=== PATIENT | female | born 1980 | race African-American/Black ===

== ENCOUNTER 2020-09-07 18:22 | Emergency (ER) | payer OTHER, SELFPAY ==
[2020-09-07 18:51] VITALS: BP 134/91; PULSE 79; RESP 16; TEMP 36.4; O2SAT 99; BMI 41.3
--- NOTE | 2020-09-07 18:53 | ED.GENADULT ---
HPI - General Adult General Chief complaint: General Medical Stated complaint: cough Related Data Allergies Allergy/AdvReac Type Severity Reaction Status Date / Time No Known Allergies Allergy Unverified 06/11/20 17:23 [No Known Allergies*] Review of Systems Review of Systems: Constitutional: No Fever, no Chills, no fatigue, no Malaise ENT/Mouth: No sore throat, no runny nose Eyes: No Discharge Cardiovascular: No Chest Pain, No SOB Respiratory: Positive Cough, No Sputum, No Wheezing, No Smoke Exposure, No Dyspnea Gastrointestinal: No Nausea, No Vomiting, No Diarrhea Genitourinary: no irregular bleeding, No Dysuria, No Urinary Frequency, No Hematuria, No Urinary Incontinence, No Urgency, No Flank Pain, Musculoskeletal: No Myalgia Skin: No rash Neuro: No Headache Yes all other systems are reviewed and are negative FOR[facility]LY [facility] Past Medical History Attestation statement: The following information was validated with the patient. Social History Social History Advance Directives: No Advance Directives Information Provided: No Physical Exam Vital Signs: Vital Signs: Last Vital Signs Temp 97.6 F 09/07/20 18:51 Pulse 79 09/07/20 18:51 Resp 16 09/07/20 18:51 BP 134/91 H 09/07/20 18:51 Pulse Ox 99 09/07/20 18:51 Body Mass Index 41.3 Appearance: Alert. Oriented X3. No acute distress. Eyes: Pupils equal, round and reactive to light. ENT: Pharynx normal. Neck: Normal inspection. Neck supple. CVS: Normal heart rate and rhythm. Pulses normal. Respiratory: No respiratory distress. Breath sounds normal. Abdomen: Soft and nontender. Skin: Skin warm and dry. Normal skin color. Normal skin turgor. Extremities: No lower extremity edema. Neuro: No motor deficit. No sensory deficit. Course Course Course Narrative: 39-year-old with upper respiratory symptoms and cough presents for COVID-19 testing. Plan of care is to test and discharge home. Patient verbalized understanding of social isolation procedure for COVID-19. Medical Decision Making Differential Diagnosis Differential Diagnosis: URI, acute viral syndrome, COVID-19 Lab Data Lab results reviewed: Yes I reviewed the patient's lab results. Discharge Plan Discharge Clinical Impression: Viral infection, COVID-19 Upper respiratory infection Qualifiers: URI type: unspecified URI Qualified Code(s): J06.9 - Acute upper respiratory infection, unspecified Patient Disposition: Home, Self-Care Instructions: Upper Respiratory Infection (ED), Viral Syndrome (ED), COVID-19 (Coronavirus Disease 2019) (ED) Additional Instructions: You were evaluated for symptoms consistent with COVID-19. Your COVID-19 test is pending. Please maintain social isolation guidelines for state and Federal regulations. It is your responsibility to maintain these guidelines. Please drink plenty of fluids, alternate Tylenol and Motrin. Thank you for choosing this emergency department for evaluation. Please follow-up with primary care physician as needed. Return to the emergency department for any new, concerning, or worsening symptoms. Interventions: ED Discharge Assessment Last Done: 09/07/20 19:23 Discharge Date/Time: 09/07/20 19:24
== END 2020-09-07 19:24 | disposition home or self-care (01) ==
PROVIDERS: Nurse Practitioner Family; Emergency Provider Internal Medicine
DX: B34.9 Viral infection, unspecified (principal); Z20.828 Contact with and (suspected) exposure to other viral communicable diseases; R05 Cough
CPT/HCPCS: 99283; U0003

== ENCOUNTER 2021-07-02 13:06 | Emergency (ER) | payer OTHER, SELFPAY ==
--- NOTE | ~2021-07-02 | XR_ITS ---
EXAMINATION: XR CHEST CLINICAL INFORMATION: Shortness of breath COMPARISON: Previous chest x-ray May 2019 TECHNIQUE: Frontal view of the chest was obtained. FINDINGS: No significant abnormality is noted involving the heart, lungs, mediastinum, bony thorax or soft tissues. XR/XR chest 1V IMPRESSION: Unremarkable examination.
[2021-07-02 14:09] VITALS: BP 133/64; PULSE 84; RESP 18; TEMP 36.2; O2SAT 99; BMI 44.3
--- NOTE | 2021-07-02 14:19 | ED_ITS ---
HPI - URI/Sore Throat General Chief Complaint: Upper Respiratory Symptoms Stated Complaint: Flu like Time Seen by Provider: 07/02/21 14:19 Source: patient Mode of arrival: ambulatory Limitations: no limitations History of Present Illness HPI Narrative: 40 yo female pmhx of asthma presents to the ED with 4 days of cough, sore throat, loss of taste and smell and congestion. She states her cough is productive of white sputum. She states she feels very stuffy. She has no known sick contacts. She has her COVID vaccine. She is a smoker 1 pack per week. Her asthma is well controlled and she has never required intubation. She denies fevers, chills, SOB, CP, abdominal pain, nausea, vomiting. Able to keep food down and drink as usual. MD elicited complaint: fever, cough, sore throat, rhinorrhea and nasal congestion Pertinent past history: asthma Onset (ago): day(s) (4) Consistency: constant Severity: moderate Description of mucous: yellow Able to tolerate fluids by mouth: Yes Exacerbating factors: nothing Relieving factors: nothing Context: recent dental work (1 week ago ) Associated symptoms: rhinorrhea, sore throat and cough Treatments prior to arrival: none Related Data Allergies Allergy/AdvReac Type Severity Reaction Status Date / Time No Known Allergies Allergy Verified 07/02/21 14:11 [No Known Allergies*] Review of Systems Review of Systems: + loss of taste and smell Yes all other systems are reviewed and are negative Constitutional: Constitutional: Reports no additional constitutional complaints, Denies body ache(s), Denies chills, Denies fever(s), Denies headache(s), Reports malaise and Denies weakness Eyes: Eyes: Reports no additional eye complaints and Denies change in vision ENT: Reports system reviewed and no additional complaints, except as documented, Denies dizziness, Denies headache(s), Reports nasal congestion, Reports nasal discharge, Denies neck pain and Reports sore throat Cardiovascular: Cardiovascular: Reports no additional cardiovascular complaints, Denies chest pain, Denies leg edema and Denies dyspnea Respiratory: Respiratory: Reports no additional respiratory complaints, Denies cough and Denies dyspnea Gastrointestinal: Gastrointestinal: Reports no additional gastrointestinal complaints, Denies abdominal pain, Denies diarrhea, Denies nausea and Denies vomiting Genitourinary: Genitourinary: Reports no additional female genitourinary complaints and Denies urinary incontinence Musculoskeletal: Musculoskeletal: Reports no additional musculoskeletal complaints, Denies back pain, Denies arthralgias, Denies joint swelling, Denies neck pain, Denies numbness and Denies tingling Integumentary/Breasts: Skin/Breast: Reports system reviewed and no additional complaints, except as docu and Denies rash Neurologic: Reports system reviewed and no additional complaints, except as documented, Denies Abnormal speech present, Denies dizziness, Denies headache(s), Denies numbness, Denies tingling and Denies weakness PMF Past Medical History Attestation statement: The following information was validated with the patient. Source: old records reviewed and nursing notes reviewed Medical History No known health problems Social History Social History Advance Directives: No Patient : No Physical Exam Vital Signs: Vital Signs: Last Vital Signs Temp 97.1 F 07/02/21 14:09 Pulse 84 07/02/21 14:09 Resp 18 07/02/21 15:25 BP 133/64 07/02/21 14:09 Pulse Ox 99 07/02/21 14:09 Body Mass Index 44.3 Const: General: cooperative, healthy appearing, comfortable and no acute distress Orientation/consciousness: patient oriented x3 Limitations: no limitations HENMT: Other: + Enlarged tonsils bilaterally slight errythema noted. Clear/yellow colored nasal discharge discharge. Head: Yes normal to inspection Ears: hearing grossly normal bilaterally General nose exam: Normal external nose present Face and sinus: Yes normal facial exam Mouth: abnormal oral mucosae, oropharynx abnormals (b/l tonsil enlargement and errythema ), moist mucous membranes, no drooling and no trismus Throat: Yes posterior oropharynx normal Eyes: General: appearance normal, both eyes and all related structures Pupils: Equal, round and reactive pupils present Neck: Neck: Yes normal visual inspection Chest: Chest palpation & inspection: normal inspection of the chest Resp: Effort & Inspection: normal respiratory effort Auscultation: clear to auscultation bilaterally Cardio: Rate: regular rate Rhythm: regular rhythm Peripheral pulses: Peripheral pulses 2+ throughout GI: Inspection: Yes normal to inspection Palpation (GI): Soft to palpation and nontender Auscultation: normal bowel sounds Back/Spine/Pelvis: Thoracic/Lumbar Spine: thoracic and lumbar spine normal to inspection Skin: General skin exam: no rashes or lesions noted Neuro: General: patient oriented x3, no focal motor deficits and normal sensa tion to monofilament Cranial nerves: Yes Equal, round and reactive pupils present Cognition (Neuro): normal cognition Speech: No Abnormal speech present Gait exam (Neuro): Normal gait present Motor exam (neuro): 5/5 motor strength present throughout Extrem: General: Yes normal to inspection Course Course Course Narrative: [age] YO female pmhx of asthma presents to the ED with 4 days of productive cough (yellow/clear sputum), anosmia, ageusia and nassal congestion. She is a smoker 1 pack per week. Fully vaccinated. Physical examination is significant for bilateral tonsil enlargement, and erythema overlying them. There is also decreased breath sounds to bilateral lower lobes. Clear/yellow rhinorrhea noted. Reevaluation(s) Reevaluation #1: Strep negative. Flu/COVID/RSV negative. This is likely a viral upper respiratory infection. She has been advised to return to the emergency department with warning signs such as fevers, chills, shortness of breath or chest pain. Or if she develops new symptoms. At this time her vitals are stable she is 99% on RA with normal respiration and afebrile. She is safe for discharge home with PCP follow up. She should take Tylenol/Motrin for fevers as needed. MDM - URI/Sore Throat MDM Narrative Medical decision making narrative: Unlikely that this is strep throat, however strep swab will be ordered. Based off patient history, and physical exam findings, this is likely COVID-19. COVID swab will be ordered to confirm. Will rule out pneumonia with CXR due to patients productive cough. No likely PE patient denies pleuritic CP, no tachycardia or tachypnea. She will be given 2 puffs of albuterol now. Medical Records Attestation: I reviewed the patient's medical records. Lab Data Attestation: I reviewed the patient's lab results. Labs: Lab Results 07/02/21 07/02/21 Range/Units 14:28 14:29 Coronavirus (PCR) NEGATIVE (Negative) Influenza Type A (PCR) NEGATIVE (Negative) Influenza Type B (PCR) NEGATIVE (Negative) RSV RNA Qual (PCR) NEGATIVE (Negative) S. pyogenes GrpA MADELYN Negative (Negative) Discharge Plan Discharge Clinical Impression: Upper respiratory infection Patient Disposition: Home, Self-Care Instructions: Upper Respiratory Infection (ED) Additional Instructions: Drink plenty of fluids Today you tested negative for strep and negative for Flu/COVID/RSV Take tylenol or motrin as needed for fevers Follow up with your PCP in a week Return to the emergency department with new or worsening symptoms. Stand Alone Forms: Work/School Release Interventions: ED Discharge Assessment Last Done: 07/02/21 16:32 Discharge Date/Time: 07/02/21 16:33
[2021-07-02] MEDS: Acetaminophen 325 MG TABLET 650 MG PO (14:40)
[2021-07-02 14:42] LABS: Strep A Nucleic Acid Negative (Negative)
[2021-07-02] MEDS: Albuterol Sulfate 90 MCG 8 GM INHALER 2 PUFF INHALE (14:55)
[2021-07-02 15:25] VITALS: RESP 18
[2021-07-02 15:27] LABS: Influenza A PCR NEGATIVE (Negative); Influenza B PCR NEGATIVE (Negative); Resp Syncy Virus RNA Qual PCR NEGATIVE (Negative); SARS COV2 PCR INHOUSE NEGATIVE (Negative)
== END 2021-07-02 16:33 | disposition home or self-care (01) ==
PROVIDERS: Nurse Practitioner Family; Emergency Provider Emergency Medicine Emergency Medical Services
DX: J06.9 Acute upper respiratory infection, unspecified (principal); J45.909 Unspecified asthma, uncomplicated; F17.200 Nicotine dependence, unspecified, uncomplicated; Z20.822 Contact with and (suspected) exposure to COVID-19
CPT/HCPCS: 0241U; 36415; 71045; 87651; 94640; 99283; 99284

== ENCOUNTER 2021-08-13 08:28 | Outpatient (REF) | payer OTHER, SELFPAY ==
[2021-08-13 11:34] LABS: Hematocrit 35.8 % (37.0-47.0); Hemoglobin 10.9 g/dl (12.0-16.0); Mean Corpuscular Hemoglobin 18.6 pg (27.0-33.0); Red Blood Count 5.87 X10*6/uL (4.20-5.50); White Blood Count 9.3 X10*3/uL (4.8-10.8)
[2021-08-13 11:35] LABS: Mean Corpuscular HGB Conc 30.4 g/dl (31.0-35.0); Mean Platelet Volume 10.6 fL (9.4-12.3); Platelet Count 436 X10*3/uL (160-400); Red Cell Distribution Width 18.9 % (11.0-16.0)
[2021-08-13 11:37] LABS: Appearance Urine HAZY; Color Urine YELLOW; Glucose Urine UA NEG (NEG); Leukocyte Esterase Urine NEG (NEG); Nitrite Urine NEG (NEG); Specific Gravity - Urine 1.025 (1.005-1.025); Urine Blood NEG (NEG); Urine Ketones NEG (NEG); Urine Protein NEG (NEG-TRACE)
[2021-08-13 11:54] LABS: Squamous Epithelial Cell Urine 2+ /LPF
[2021-08-13 11:55] LABS: Bacteria Urine 1+ /LPF; RBC Urine 0 /HPF (0); WBC Urine 0 /HPF (0-4)
[2021-08-13 12:00] LABS: Alanine Aminotransferase 16 U/L (0-31); Alkaline Phosphatase 83 U/L (39-117); Anion Gap 14 (12-20); Aspartate Amino Transferase 18 U/L (5-31); Bilirubin Total 1.1 mg/dL (0.0-1.0); Blood Urea Nitrogen 8 mg/dL (9-16); Calcium 9.3 mg/dL (8.4-10.2); Carbon Dioxide 24 mmol/L (22-29); Chloride 105 mmol/L (96-108); Cholesterol 141 mg/dL; Estimated Glomerular Filt Rate > 60; Glucose Fasting 80 mg/dL (60-99); HDL Cholesterol 31 mg/dL; LDL Cholesterol Calculated 89 mg/dl; Potassium 4.6 mmol/L (3.3-5.1); Sodium 138 mmol/L (135-145); Total Protein 7.3 g/dL (6.5-8.0); Triglycerides 105 mg/dL
[2021-08-13 12:22] LABS: TSH reflex Free T4 1.81 uIU/mL (0.32-4.0)
== END 2021-08-13 08:29 | disposition home or self-care (01) ==
LOC: HO.HMGCLDS 08:28
PROVIDERS: PCP Internal Medicine; Visit Provider Internal Medicine
DX: Z00.00 Encounter for general adult medical examination without abnormal findings (principal)
CPT/HCPCS: 36415; 80053; 80061; 81001; 84443; 85027

== ENCOUNTER → 2021-08-27 11:22 | Outpatient (BNVA) | payer OTHER, SELFPAY | PROVIDERS: PCP Internal Medicine; Visit Provider Advanced Practice Midwife ==

== ENCOUNTER → 2021-09-30 10:32 | Outpatient (BNVA) | payer OTHER, SELFPAY | PROVIDERS: PCP Internal Medicine; Visit Provider Advanced Practice Midwife | DX: Z30.46 Encounter for surveillance of implantable subdermal contraceptive (principal); R68.89 Other general symptoms and signs; E66.01 Morbid (severe) obesity due to excess calories; F17.200 Nicotine dependence, unspecified, uncomplicated; Z68.41 Body mass index [BMI] 40.0-44.9, adult | CPT/HCPCS: 11982 ==

== ENCOUNTER 2022-01-05 08:30 | Outpatient (REF) | payer OTHER, SELFPAY ==
[2022-01-05 17:30] LABS: CT PCR NOT DETECTED (Not Detect.); NG PCR NOT DETECTED (Not Detect.)
[2022-01-06 09:43] LABS: BV Int Neg Control Negative (Negative); BV Int Pos Control Positive (Positive)
== END 2022-01-05 08:31 | disposition home or self-care (01) ==
LOC: HO.LAB 08:30
PROVIDERS: PCP Internal Medicine; Visit Provider Advanced Practice Midwife
DX: Z01.419 Encounter for gynecological examination (general) (routine) without abnormal findings (principal); N89.8 Other specified noninflammatory disorders of vagina; L28.0 Lichen simplex chronicus; E66.01 Morbid (severe) obesity due to excess calories; F17.210 Nicotine dependence, cigarettes, uncomplicated; Z11.3 Encounter for screening for infections with a predominantly sexual mode of transmission; Z11.8 Encounter for screening for other infectious and parasitic diseases; Z68.42 Body mass index [BMI] 45.0-49.9, adult
CPT/HCPCS: 87480; 87491; 87510; 87591; 87660

== ENCOUNTER 2022-01-31 15:48 | Outpatient (REF) | payer OTHER, SELFPAY ==
--- NOTE | ~2022-01-31 | MM_ITS ---
EXAMINATION: MM SCREENING DIGITAL BREAST TOMOSYNTHESIS, BILATERAL CLINICAL INFORMATION: Screening. Asymptomatic. Age 41. No prior breast imaging. Family history breast cancer, mother. The lifetime risk of breast cancer based on the Tyrer-Cuzick Model is 17%. COMPARISON: None (current study represents initial baseline exam). TECHNIQUE: Digital breast tomosynthesis is performed in both the craniocaudal and mediolateral oblique views along with computer-aided detection (CAD). Synthesized 2D images are generated from the tomosynthesis. FINDINGS: There are scattered areas of fibroglandular density (ACR BI-RADS breast composition Category b). Parenchymal pattern borders on predominantly fatty. There is no significant mass or architectural abnormality. There are no abnormal calcifications. Two incidental low right axillary tail nodes are present on right MLO view. The bilateral axilla and skin contours are unremarkable. MM/MM tomosynthesis screening BI IMPRESSION: No mammographic evidence of malignancy. ASSESSMENT: BI-RADS 2: Benign RECOMMENDATION: Routine annual mammography screening. This patient's information was entered into a reminder system with a target due date for their next mammogram.
== END 2022-01-31 15:49 | disposition home or self-care (01) ==
LOC: HO.MAMMO 15:48
PROVIDERS: Visit Provider Advanced Practice Midwife
DX: Z12.31 Encounter for screening mammogram for malignant neoplasm of breast (principal)
CPT/HCPCS: 77063; 77067

== ENCOUNTER → 2022-03-07 14:47 | Outpatient (BNVA) | payer OTHER, SELFPAY | PROVIDERS: Visit Provider Advanced Practice Midwife | DX: Z31.69 Encounter for other general counseling and advice on procreation (principal); Z32.02 Encounter for pregnancy test, result negative | CPT/HCPCS: 81025; 99212 ==

== ENCOUNTER 2022-04-22 10:53 | Outpatient (REF) | payer OTHER, SELFPAY ==
--- NOTE | ~2022-04-22 | XR_ITS ---
EXAMINATION: XR CHEST CLINICAL INFORMATION: Encounter for general adult medical examination COMPARISON: None TECHNIQUE: 2 views of the chest were obtained. FINDINGS: The lungs are well expanded. There is no focal consolidation, edema, or effusion. No pneumothorax. The cardiomediastinal silhouette is within normal limits. No acute osseous abnormality. XR/XR chest 2V IMPRESSION: No acute pulmonary finding.
== END 2022-04-22 10:54 | disposition home or self-care (01) ==
LOC: HO.HMGCX 10:53
PROVIDERS: Visit Provider Internal Medicine
DX: Z00.00 Encounter for general adult medical examination without abnormal findings (principal)
CPT/HCPCS: 71046

== ENCOUNTER 2022-09-27 15:16 | Outpatient (REF) | payer OTHER, SELFPAY ==
[2022-09-27 16:58] LABS: Appearance Urine Cloudy; Color Urine Yellow; Glucose Urine UA Negative (Negative); Leukocyte Esterase Urine Moderate (2+) (Negative); Nitrite Urine Negative (Negative); Specific Gravity - Urine 1.025 (1.005-1.025); UMIC TRIGGER UACC YES; Urine Blood Moderate (2+) (Negative); Urine Ketones Negative (Negative); Urine Protein 30 (1+) mg/dL (Neg-Trace)
[2022-09-27 17:04] LABS: Bacteria Urine None Seen (None Seen); Hyaline Casts Urine 0-2 /LPF (0-2); Squamous Epithelial Cell Urine 0-2 /HPF (0-2); UACC Culture Trigger YES; WBC Urine >50 /HPF (0-5)
== END 2022-09-27 15:17 | disposition home or self-care (01) ==
LOC: HO.HMGCLDS 15:16
PROVIDERS: Visit Provider Internal Medicine
DX: N39.0 Urinary tract infection, site not specified (principal)
CPT/HCPCS: 81001; 81003; 87086

== ENCOUNTER 2022-10-04 15:05 | Outpatient (REF) | payer OTHER, SELFPAY ==
[2022-10-04 17:11] LABS: Appearance Urine Clear; Color Urine Yellow; Glucose Urine UA Negative (Negative); Leukocyte Esterase Urine Negative (Negative); Nitrite Urine Negative (Negative); PH 6.5 (5.0-9.0); Urine Blood Negative (Negative); Urine Ketones Negative (Negative); Urine Protein Negative (Neg-Trace)
== END 2022-10-04 15:06 | disposition home or self-care (01) ==
LOC: HO.HMGCLDS 15:05
PROVIDERS: PCP Internal Medicine; Visit Provider Internal Medicine
DX: R30.0 Dysuria (principal); N39.0 Urinary tract infection, site not specified
CPT/HCPCS: 81003; 87086; 87088; 87186

== ENCOUNTER 2023-01-23 13:24 | Outpatient (REF) | payer OTHER, SELFPAY ==
[2023-01-23 15:08] LABS: Appearance Urine Clear; Color Urine Yellow; Glucose Urine UA Negative (Negative); Leukocyte Esterase Urine Trace (Negative); Nitrite Urine Negative (Negative); PH 6.5 (5.0-9.0); Specific Gravity - Urine <= 1.005 (1.005-1.025); UMIC TRIGGER UACC YES; Urine Blood Negative (Negative); Urine Ketones Negative (Negative); Urine Protein Negative (Neg-Trace)
[2023-01-23 15:30] LABS: Bacteria Urine None Seen (None Seen); Hyaline Casts Urine 0-2 /LPF (0-2); RBC Urine 0-2 /HPF (0-2); Squamous Epithelial Cell Urine 0-2 /HPF (0-2); WBC Urine 0-5 /HPF (0-5)
[2023-01-23 15:51] LABS: HCG Quantitative < 2 mIU/mL
== END 2023-01-23 13:25 | disposition home or self-care (01) ==
LOC: HO.LAB 13:24
PROVIDERS: PCP Internal Medicine; Visit Provider Advanced Practice Midwife
DX: N92.6 Irregular menstruation, unspecified (principal); R39.15 Urgency of urination; R35.0 Frequency of micturition
CPT/HCPCS: 36415; 81001; 81003; 81025; 84702; 99212

== ENCOUNTER 2023-08-31 13:23 | Outpatient (AMB) | payer OTHER, SELFPAY ==
--- NOTE | 2023-08-31 13:24 | A.OFFVIS_ITS ---
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 Doing well with no concerns. She tries to eat healthy, no regular exercise. Regular monthly menses. Currently is sexually active. Declines control. She wants to have a future . She denies vaginal itching and irritation. Denies family history of ovarian or colon cancer. 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: House Patient Tobacco Use Status: Current everyday Tobacco user Cigarette Packs Per Day: 0 Cigarettes Per Day: 3 service: No Current occupational status: employed Female Reproductive History Menstrual Duration of menses: 3-5 days Date of last menstrual period: 08/04/23 Total pregnancies: 3 Full term: 3 Number of Living Children: 3 Date of last pap smear: 07/12/19 (neg pap and hpv) Date of Mammogram: 01/31/22 (Birad 2) Review of Systems Const All systems reviewed & are unremarkable except as noted in HPI and below Reports as per HPI Eyes Reports no additional complaints ENT Reports no additional complaints Card Reports no additional complaints Resp Reports no additional complaints GI Reports as per HPI and Reports no additional complaints Reports as per HPI Musc Reports no additional complaints Skin/Breast Reports as per HPI Neuro Reports no additional complaints Psych Reports no additional complaints Endo Reports no additional complaints Ismael/Lymph Reports no additional complaints Aller/Immun Reports no additional complaints Physical Exam Vital Signs: Last Vital Signs BP 124/80 08/31/23 13:29 BMI result Body Mass Index 47.3 Const General: cooperative, healthy appearing, no acute distress, well developed and alert Orientation/consciousness: patient oriented x3 HEENT Head: Yes normal to inspection Eyes General: appearance normal, both eyes and all related structures Neck Neck: Yes normal visual inspection Thyroid: Thyroid normal Chest Chest palpation & inspection: normal inspection of the chest and other (no puckering, dimpling, peau de orange, retraction, discharge, masses) Breast/axilla inspection: normal inspection of the breasts Breast/axilla palpation: normal palpation of the breasts Resp Effort & Inspection: normal respiratory effort GI Inspection: Yes normal to inspection Palpation (GI): Soft to palpation Rectal Exam - Female: deferred General: Yes bladder normal to palpation External Female Exam: normal external appearance and normal appearance of the urethra Speculum Exam - Vagina: normal appearance of the vagina, normal palpation and normal vaginal discharge Speculum Exam - Cervix: normal appearance of the cervix and normal palpation Bimanual exam- vagina & uterus: normal bimanual exam, normal palpation, uterine size normal, bladder normal to palpation, normal palpation and non-tender Bimanual Exam- Adnexa, other: no masses Skin General skin exam: no rashes or lesions noted Rashes: no rashes Neuro General: patient oriented x3 Cognition (Neuro): normal cognition Extrem General: Yes normal to inspection Psych Attitude: cooperative Thought process: Normal thought process present Assessment & Plan Assessment & Plan (1) Encounter for well woman exam with routine gynecological exam: Code(s): Z01.419 - Encounter for gynecological examination (general) (routine) without abnormal findings Plan Discussed: Current recommendations for pap smears per ASCCP guidelines. Breast awareness and periodic breast exams. Maintain a healthy lifestyle including a well balanced diet and routine exercise. Advised to restart could do to continue with vitamins and planning. If she is late for menses do a home test and call the [facility] for follow-up appointment. Mammogram yearly. Colonoscopy >45, or at risk sooner. All of her questions and concerns were addressed to the best of my ability. 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 Orders: Orders MM tomosynthesis screening BI Today Z12.31 - Encounter for screening mammogram for malignant neoplasm of breast Medications: Refilled PNV,calcium [id number] acid 27 mg iron- 1 mg ( Vitamins Plus Low Iron) 1 tab PO DAILY 90 tabs 4RF Coding Level of Care Code Est Pt Prev Care 40-64y(81424) Diagnoses Encounter for well woman exam with routine gynecological exam Z01.419
[2023-08-31 13:29] VITALS: BP 124/80; BMI 47.3
== END 2023-08-31 14:00 | disposition home or self-care (01) ==
PROVIDERS: PCP Internal Medicine; Visit Provider Advanced Practice Midwife
DX: Z01.419 Encounter for gynecological examination (general) (routine) without abnormal findings (principal)
CPT/HCPCS: 99396

== ENCOUNTER → 2023-08-31 13:23 | Outpatient (BNVA) | payer OTHER, SELFPAY | PROVIDERS: PCP Internal Medicine; Visit Provider Advanced Practice Midwife ==

== ENCOUNTER 2023-09-14 13:04 | Outpatient (AMB) | payer OTHER, SELFPAY ==
--- NOTE | 2023-09-14 13:13 | MHC.PC.OV ---
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 Accompanied by: Self / Same As Patient Allergies No Known Allergies [No Known Allergies*] Allergy (Verified 09/14/23 13:14) Medication List - Last Reconciled 09/14/23 by Crystal Mccarty MD PNV,calcium 22-[id number]-[id number] acid 27 mg iron- 1 mg ( Vitamins Plus Low Iron) 1 tab PO DAILY Tobacco use date assessed: 09/14/23 Dental Screening Dental Screen Date: 09/14/23 Did you have a dental visit in the last 12 months?: Yes Did you have a dental problem in the last 6 months where you did not have access to dental care?: No Was dental information given to patient?: Patient has dentist HPI PHY+ NEEDS PHQ9 HPI Details Pt presents for PE. 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 1. Little interest or pleasure in doing things: several days 2. Feeling down, depressed, or hopeless: several days 3. Trouble falling or staying asleep, or sleeping too much: not at all 4. Feeling tired or having little energy: several days 5. Poor appetite or overeating: several days 6. Feeling bad about yourself - or that you are a failure or have let yourself or your family down: several days 7. Trouble concentrating on things, such as reading the newspaper or watching television: not at all 8. Moving or speaking so slowly that other people could have noticed. Or the opposite - being so fidgety or restless that you have been moving around a lot more than usual: not at all 9. Thoughts that you would be better off or of hurting yourself in some way: not at all Total score: 5 Depression Screening Interpretation: Negative Depression Screening Done: Yes 38509 - PHQ-9 Billing: Yes Source: Developed by Drs. Russ Shepherd, Leonela Ricardo, Juancarlos Ndiaye and colleagues, with an educational thomas from [employer]. Thrive Questionnaire Date Thrive assessed: 09/14/23 I am a: Patient What is your living situation today?: I have a steady place to live Within the past 12 months, did the food you bought not last and you didn't have the money to get more?: Never true Within the past 12 months, did you worry whether your food would run out before you got money to buy more?: Never true Do you have trouble paying for medicines?: No Do you have trouble getting transportation to medical appointments?: No Do you have trouble paying your heating and electricity bill?: No Do you have trouble taking care of your child, family member or friend?: No Do you have trouble with day-to-day activities such as bathing, preparing meals, shopping, managing finances, etc.?: No Are you currently unemployed and looking for a job?: No Are you interested in more education?: No Please select the resources that you would like help with: None Currently or been in a relationship where the following occur: no concerns reported JUANCARLOS-7 AMB Questionnaire JUANCARLOS-7 Date JUANCARLOS - 7 assessed: 09/14/23 Feeling nervous, anxious, or on edge: 1 = Several days Not being able to stop or control worryin = Several days Worrying too much about different things: 0 = Not at all Trouble relaxin = Not at all Being so restless that it is hard to sit still: 1 = Several days Becoming easily annoyed or irritable: 0 = Not at all Feeling afraid as if something awful might happen: 0 = Not at all Total JUANCARLOS-7 score (0-4 normal; 5-9 mild; 10-14 moderate; 15-21 severe): 3 Source: Developed by Drs. Russ Shepherd, Leonela Ricardo, Juancarlos Ndiaye and colleagues, with an educational thomas from [employer]. JUANCARLOS-7 Assessment Billing JUANCARLOS-7 Assessment Tool: JUANCARLOS-7 Assessment 60184 Review of Systems Const All systems reviewed & are unremarkable except as noted in HPI and below Reports no additional complaints Eyes Reports no additional complaints ENT Reports no additional complaints Card Reports no additional complaints Resp Reports no additional complaints GI Reports no additional complaints Reports no additional complaints Physical exam (Primary Care) Vital Signs: Last Vital Signs Pulse 65 09/14/23 13:14 BP 126/76 09/14/23 13:14 Pulse Ox 98 09/14/23 13:14 Oxygen Delivery Method Room Air 09/14/23 13:14 BMI result Body Mass Index 47.3 Tobacco/Smoking Status: Tobacco use Status Tobacco use date assessed 09/14/23 09/14/23 13:14 Patient Tobacco Use Status Current everyday Tobacco 09/14/23 13:14 e-Cigarette/Vaping Use Never Used 09/14/23 13:14 PHQ-9: PHQ-9 Score PHQ-9: Total score 5 09/14/23 13:31 Depression Screening Interpretation: Negative Thrive Assessment: Date of Thrive Assessment Date Thrive assessed 09/14/23 09/14/23 13:31 Currently or been in a relationship where the following occur: no concerns reported Const General: no acute distress HENMT Head: Yes normal to inspection Ears: hearing grossly normal bilaterally Face and sinus: Yes normal facial exam Mouth: Normal oral and palatal mucosa present Throat: Yes posterior oropharynx normal Eyes General: appearance normal, both eyes and all related structures Neck Neck: Yes no lymphadenopathy and Yes supple Resp Effort & Inspection: normal respiratory effort Auscultation: clear to auscultation bilaterally Cardio Rhythm: regular rhythm Heart sounds: S1 normal heart sound present and S2 normal heart sound present GI Inspection: Yes normal to inspection Palpation (GI): Soft to palpation Percussion: Yes normal to percussion Auscultation: normal bowel sounds Results AMB Urinalysis, Automated UA Leukoctes 0 Long/uL Last Edit by Dakota Soni CMA on 09/14/23 13:29 UA Nitrite Negative Last Edit by Dakota Soni CMA on 09/14/23 13:29 UA Urobilinogen 0.2 mg/dL Last Edit by Dakota Soni CMA on 09/14/23 13:29 UA Protein 0 mg/dL Last Edit by Dakota Soni CMA on 09/14/23 13:29 UA pH 7.5 Last Edit by Dakota Soni CMA on 09/14/23 13:29 UA Blood 0 Bernardo/uL Last Edit by Dakota Soni CMA on 09/14/23 13:29 UA Specific [place] 1.010 Last Edit by Dakota Soni CMA on 09/14/23 13:29 UA Ketone Negative Last Edit by Dakota Soni CMA on 09/14/23 13:29 UA Bilirubin 0 mg/dL Last Edit by Dakota Soni CMA on 09/14/23 13:29 UA Glucose 0 mg/dL Last Edit by Dakota Soni CMA on 09/14/23 13:29 Results Reviewed Results Reviewed: Laboratory Last Values Urine pH (Auto) 7.5 09/14/23 13:28 Specific [place] (Auto) 1.010 09/14/23 13:28 Urine Protein (Auto) 0 mg/dL 09/14/23 13:28 Glucose (UA)(Auto) 0 mg/dL 09/14/23 13:28 Urine Ketones (Auto) Negative 09/14/23 13:28 Urine Blood (Auto) 0 Bernardo/uL 09/14/23 13:28 Urine Nitrite (Auto) Negative 09/14/23 13:28 Urine Bilirubin (Auto) 0 mg/dL 09/14/23 13:28 Urine Urobilinogen (Auto) 0.2 mg/dL 09/14/23 13:28 Leukocyte Esterase (Auto) 0 Long/uL 09/14/23 13:28 Assessment and Plan Assessment & Plan (1) Annual physical exam: Code(s): Z00.00 - Encounter for general adult medical examination without abnormal findings Plan: Well-balanced diet, weight loss and regular physical activity discussed with the patient she will return for fasting blood work. 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 she is not interested in weight watchers program (3) UTI (urinary tract infection): Code(s): N39.0 - Urinary tract infection, site not specified Plan: For recurrent dysuria urine culture will be obtained. Orders: Orders Lipid Panel Today E66.01 - Morbid (severe) obesity due to excess calories, Z00.00 - Encounter for general adult medical examination without abnormal findings AMB Urinalysis Automated Today Z13.9 - Encounter for screening, unspecified Complete Blood Count Auto Diff Today E66.01 - Morbid (severe) obesity due to excess calories, Z00.00 - Encounter for general adult medical examination without abnormal findings Comprehensive [place]. Panel Fast Today E66.01 - Morbid (severe) obesity due to excess calories, Z00.00 - Encounter for general adult medical examination without abnormal findings TSH reflex Free T4 Today E66.01 - Morbid (severe) obesity due to excess calories, Z00.00 - Encounter for general adult medical examination without abnormal findings IRON PROFILE Today E66.01 - Morbid (severe) obesity due to excess calories, Z00.00 - Encounter for general adult medical examination without abnormal findings Urine Culture Today N39.0 - Urinary tract infection, site not specified Coding Level of Care Code Est Pt Prev Care 40-64y(35729) Diagnoses Annual physical exam Z00.00 Morbid obesity E66.01 UTI (urinary tract infection) N39.0 Additional Codes JUANCARLOS-7 Assessment Billing - JUANCARLOS-7 Assessment Tool: JUANCARLOS-7 Assessment 55046 ([id number])
[2023-09-14 13:14] VITALS: BP 126/76; PULSE 65; O2SAT 98; BMI 47.3
== END 2023-09-14 13:53 | disposition home or self-care (01) ==
PROVIDERS: PCP Internal Medicine; Visit Provider Internal Medicine
DX: Z00.00 Encounter for general adult medical examination without abnormal findings (principal); E66.01 Morbid (severe) obesity due to excess calories; N39.0 Urinary tract infection, site not specified; Z68.42 Body mass index [BMI] 45.0-49.9, adult; R30.0 Dysuria
CPT/HCPCS: 81003; 99396

== ENCOUNTER 2023-09-14 16:10 | Outpatient (REF) | payer OTHER, SELFPAY | END 2023-09-14 16:11 | disposition home or self-care (01) | LOC: HO.HMGCLNP 16:10 | PROVIDERS: Visit Provider Internal Medicine | DX: N39.0 Urinary tract infection, site not specified (principal) | CPT/HCPCS: 87086; 87088; 87186 ==

== ENCOUNTER 2024-02-08 13:34 | Emergency (ER) | payer OTHER, SELFPAY ==
[2024-02-08 13:53] VITALS: BP 155/82; PULSE 67; RESP 17; TEMP 36.6; O2SAT 99; BMI 45.9
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
[2024-02-08] MEDS: Cyclobenzaprine HCl 5 MG TABLET PO (14:04)
[2024-02-08] MEDS: Ketorolac Tromethamine 15 MG/ML VIAL IM (14:04)
== END 2024-02-08 14:09 | disposition home or self-care (01) ==
PROVIDERS: Emergency Provider Emergency Medicine
DX: S39.012A Strain of muscle, fascia and tendon of lower back, initial encounter (principal); V89.2XXA Person injured in unspecified motor-vehicle accident, traffic, initial encounter; Y93.9 Activity, unspecified; Y92.410 Unspecified street and highway as the place of occurrence of the external cause; Y99.9 Unspecified external cause status
CPT/HCPCS: 96372; 99282; 99284; J1885

== ENCOUNTER 2024-02-12 09:51 | Emergency (ER) | payer OTHER, MEDICAID, SELFPAY ==
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
[2024-02-12 10:20] VITALS: BP 145/71; PULSE 69; RESP 16; TEMP 36.6; O2SAT 100; BMI 44.2
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
[2024-02-12] MEDS: Ketorolac Tromethamine 15 MG/ML VIAL 30 MG IM (12:09)
[2024-02-12 14:17] VITALS: BP 125/68; PULSE 52; RESP 18; TEMP 36.6; O2SAT 98
[2024-02-12 14:48] VITALS: BP 125/68; PULSE 52; RESP 18; TEMP 36.6; O2SAT 98
== END 2024-02-12 14:50 | disposition home or self-care (01) ==
PROVIDERS: Emergency Provider Emergency Medicine
DX: Z04.1 Encounter for examination and observation following transport accident (principal); R10.13 Epigastric pain; M54.50 Low back pain, unspecified; R07.89 Other chest pain; R51.9 Headache, unspecified; F17.210 Nicotine dependence, cigarettes, uncomplicated
CPT/HCPCS: 70450; 71250; 72125; 74176; 96372; 99284; J1885

== ENCOUNTER 2024-11-22 13:15 | Outpatient (AMB) | payer BC, SELFPAY ==
--- NOTE | 2024-11-22 13:18 | MHC.PC.OV ---
Vital Signs 11/22/24 13:24 Height 5 ft 9.5 in Weight 309 lb BMI 45.0 BP 118/70 Blood Pressure Location Lt brachial Position Sitting Respiration 20 Pulse 67 Pulse Source Pulse Oximeter Temp 98.1 F Temp Source Oral Pulse Oximetry (%) 98 Oxygen Delivery Method Room Air Intake Visit Reasons: PE Intake Note: Pt is here today for PE. Pt states that she noticed oddor in her urine. Allergies No Known Allergies [No Known Allergies*] Allergy (Verified 11/22/24 13:25) Medication List - Last Reconciled 11/22/24 by Crystal Mccarty MD PNV,calcium 68-[id number]-zffry acid 27 mg iron- 1 mg ( Vitamins Plus Low Iron) 1 tab PO DAILY Tobacco use date assessed: 11/22/24 Dental Screening Dental Screen Date: 11/22/24 Did you have a dental visit in the last 12 months?: Yes Did you have a dental problem in the last 6 months where you did not have access to dental care?: No Was dental information given to patient?: Patient has dentist HPI PE HPI Details Pt presents for PE. 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 1. Little interest or pleasure in doing things: not at all 2. Feeling down, depressed, or hopeless: not at all 3. Trouble falling or staying asleep, or sleeping too much: several days 4. Feeling tired or having little energy: several days 5. Poor appetite or overeating: not at all 6. Feeling bad about yourself - or that you are a failure or have let yourself or your family down: not at all 7. Trouble concentrating on things, such as reading the newspaper or watching television: not at all 8. Moving or speaking so slowly that other people could have noticed. Or the opposite - being so fidgety or restless that you have been moving around a lot more than usual: not at all 9. Thoughts that you would be better off or of hurting yourself in some way: not at all Total score: 2 Depression Screening Interpretation: Negative Depression Screening Done: Yes 76224 - PHQ-9 Billing: Yes Source: Developed by Drs. Russ Shepherd, Leonela Ricardo, Juancarlos Ndiaye and colleagues, with an educational thomas from [employer]. Thrive Questionnaire Date Thrive assessed: 11/22/24 I am a: Patient What is your living situation today?: I have a steady place to live Within the past 12 months, did the food you bought not last and you didn't have the money to get more?: I choose not to answer this question Within the past 12 months, did you worry whether your food would run out before you got money to buy more?: I choose not to answer this question Do you have trouble paying for medicines?: I choose not to answer this question Do you have trouble getting transportation to medical appointments?: I choose not to answer this question Do you have trouble paying your heating and electricity bill?: I choose not to answer this question Do you have trouble taking care of your child, family member or friend?: No Do you have trouble with day-to-day activities such as bathing, preparing meals, shopping, managing finances, etc.?: No Are you currently unemployed and looking for a job?: Yes Are you interested in more education?: No Please select the resources that you would like help with: None Currently or been in a relationship where the following occur: No concerns reported THRIVE Score: 0 AUDIT C Alcohol Use Questionnaire (AUDIT-C) 1. How often do you have a drink containing alcohol?: Never 3. How often do you have six or more drinks on one occasion?: Never Total Score: 0 JUANCARLOS-7 AMB Questionnaire JUANCARLOS-7 Date JUANCARLOS - 7 assessed: 11/22/24 Feeling nervous, anxious, or on edge: 1 = Several days Not being able to stop or control worryin = Not at all Worrying too much about different things: 0 = Not at all Trouble relaxin = Not at all Being so restless that it is hard to sit still: 1 = Several days Becoming easily annoyed or irritable: 0 = Not at all Feeling afraid as if something awful might happen: 0 = Not at all Total JUANCARLOS-7 score (0-4 normal; 5-9 mild; 10-14 moderate; 15-21 severe): 2 Source: Developed by Drs. Russ Shepherd, Leonela Ricardo, Juancarlos Ndiaye and colleagues, with an educational thomas from [employer]. JUANCARLOS-7 Assessment Billing JUANCARLOS-7 Assessment Tool: JUANCARLOS-7 Assessment 43152 Review of Systems Const All systems reviewed & are unremarkable except as noted in HPI and below Eyes Reports no additional complaints ENT Reports no additional complaints Card Reports no additional complaints Resp Reports no additional complaints GI Reports no additional complaints Reports no additional complaints Skin/Breast Reports system reviewed and no additional complaints, except as documented Physical exam (Primary Care) Vital Signs: Last Vital Signs Temp 98.1 F 11/22/24 13:24 Pulse 67 11/22/24 13:24 Resp 20 11/22/24 13:24 BP 118/70 11/22/24 13:24 Pulse Ox 98 11/22/24 13:24 Oxygen Delivery Method Room Air 11/22/24 13:24 BMI result Body Mass Index 45.0 Tobacco/Smoking Status: Tobacco use Status Tobacco use date assessed 11/22/24 11/22/24 13:30 Patient Tobacco Use Status Current everyday Tobacco 11/22/24 13:19 e-Cigarette/Vaping Use Never Used 11/22/24 13:19 PHQ-9: PHQ-9 Score PHQ-9: Total score 2 11/22/24 13:35 Depression Screening Interpretation: Negative Thrive Assessment: Date of Thrive Assessment Date Thrive assessed 11/22/24 11/22/24 13:30 Currently or been in a relationship where the following occur: No concerns reported Const General: no acute distress HENWY Head: Yes normal to inspection Ears: hearing grossly normal bilaterally Face and sinus: Yes normal facial exam Throat: Yes posterior oropharynx normal Eyes General: appearance normal, both eyes and all related structures Neck Neck: Yes no lymphadenopathy and Yes supple Resp Effort & Inspection: normal respiratory effort Auscultation: clear to auscultation bilaterally Cardio Rhythm: regular rhythm Heart sounds: S1 normal heart sound present and S2 normal heart sound present GI Inspection: Yes normal to inspection Palpation (GI): Soft to palpation Percussion: Yes normal to percussion Auscultation: normal bowel sounds Results AMB Urinalysis, Automated UA Leukoctes 0 Long/uL Last Edit by Dee Enrique [facility] on 11/22/24 13:36 UA Nitrite Negative Last Edit by Dee Enrique [facility] on 11/22/24 13:36 UA Urobilinogen 0.2 mg/dL Last Edit by Dee Enrique [facility] on 11/22/24 13:36 UA Protein 0 mg/dL Last Edit by Dee Enrique [facility] on 11/22/24 13:36 UA pH 6.0 Last Edit by Dee Enrique [facility] on 11/22/24 13:36 UA Blood 0 Bernardo/uL Last Edit by Dee Enrique [facility] on 11/22/24 13:36 UA Specific Wilber 1.005 Last Edit by Dee Enrique [facility] on 11/22/24 13:36 UA Ketone Negative Last Edit by Dee Enrique [facility] on 11/22/24 13:36 UA Bilirubin 0 mg/dL Last Edit by Dee Enrique [facility] on 11/22/24 13:36 UA Glucose 0 mg/dL Last Edit by Dee Enrique [facility] on 11/22/24 13:36 Results Reviewed Results Reviewed: Laboratory Last Values Urine pH (Auto) 6.0 11/22/24 13:33 Specific Wilber (Auto) 1.005 11/22/24 13:33 Urine Protein (Auto) 0 mg/dL 11/22/24 13:33 Glucose (UA)(Auto) 0 mg/dL 11/22/24 13:33 Urine Ketones (Auto) Negative 11/22/24 13:33 Urine Blood (Auto) 0 Bernardo/uL 11/22/24 13:33 Urine Nitrite (Auto) Negative 11/22/24 13:33 Urine Bilirubin (Auto) 0 mg/dL 11/22/24 13:33 Urine Urobilinogen (Auto) 0.2 mg/dL 11/22/24 13:33 Leukocyte Esterase (Auto) 0 Long/uL 11/22/24 13:33 Coding Level of Care Code Est Pt Prev Care 40-64y(41302) Diagnoses Morbid obesity E66.01 Annual physical exam Z00.00 UTI (urinary tract infection) N39.0 Additional Codes JUANCARLOS-7 Assessment Billing - JUANCARLOS-7 Assessment Tool: JUANCARLOS-7 Assessment 45502 ([id number]) PHQ-9 - 32694 - PHQ-9 Billing: Yes ([id number]) Assessment & Plan Assessment & Plan (1) Morbid obesity: Code(s): E66.01 - Morbid (severe) obesity due to excess calories Category: Medical Plan: decreased caloric intake increase physical activity well-balanced diet discussed with the patient (2) Annual physical exam: Code(s): Z00.00 - Encounter for general adult medical examination without abnormal findings Category: Medical Plan: Well-balanced diet regular physical activity discussed with the patient return for fasting blood work she is up-to-date with the pelvic exam Pap smear and mammogram by utilization management rn (3) UTI (urinary tract infection): Code(s): N39.0 - Urinary tract infection, site not specified Category: Medical Plan: Check urine culture Orders: Orders AMB Urinalysis Automated Today Z13.9 - Encounter for screening, unspecified Complete Blood Count Auto Diff Today Z00.00 - Encounter for general adult medical examination without abnormal findings Lipid Panel Today Z00.00 - Encounter for general adult medical examination without abnormal findings TSH reflex Free T4 Today Z00.00 - Encounter for general adult medical examination without abnormal findings Urine Culture Today N39.0 - Urinary tract infection, site not specified Comprehensive [place]. Panel Fast Today Z00.00 - Encounter for general adult medical examination without abnormal findings
[2024-11-22 13:24] VITALS: BP 118/70; PULSE 67; RESP 20; TEMP 36.7; O2SAT 98; BMI 45.0
--- OUTSIDE RECORDS SUMMARY | 2024-11-22 15:19 | XMS_ITS | Clinical Summary ---
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 Name Role Phone Unavailable Primary Care Provider Unavailabl e Social History Tobacco Use Types Packs/Day Years Used Date Smoking Tobacco: Never Assessed Comments Unknown Sex and Gender Information Value Date Recorded Sex Assigned at Female 07/25/2022 10:36 AM EDT Legal Sex Female 10:36 AM EDT Gender Identity Female 07/25/2022 10:36 AM EDT Sexual Orientation Don't know 07/25/2022 10 :36 AM EDT Plan of Treatment Health Maintenance Due Date Last Done Comments Depression Screening 1982 Alcohol/Substance Use Screening 1994 Tobacco Screening 1994 Family Planning (PISQ) 1997 DTaP/Tdap/Td Vaccines (1 - Tdap) 2001 Hepatitis B Vaccines (1 of 3 - 19+ 3-dose series) 2001 Pap Smear 2003 Cervical Cancer Screening 2012 HPV/Cotest 2012 Mammogram 2022 COVID-19 Vaccine ( - 2023-2 5 season) 2024 Influenza Vaccine (#1) 2024 Zoster Vaccines (1 of 2) 2032 RSV Patients and Pa tients Aged 60 years or older (1 - 1-dose 75+ series) 2057 HIB Vaccines Aged Out No longer eligi ble based on patient's age to complete this topic HPV Vaccines Aged Out No longer eligi ble based on patient's age to complete this topic Hepatitis A Vaccines Aged Out No long er eligible based on patient's age to complete this topic IPV Vaccines Aged Out No longer eligi ble based on patient's age to complete this topic Meningococcal Vaccine Aged Out No mary kay lesia eligible based on patient's age to complete this topic Pneumococcal Vaccine: Pediat rics (0 to 5 Years) and At-Risk Patients (6 to 49) Years) Aged Out No longer eligible b ased on patient's age to complete this topic RSV under 20 months Aged Out No longe r eligible based on patient's age to complete this topic Rotavirus Vaccines Aged Out No longer eligible based on patient's age to complete this topic
--- OUTSIDE RECORDS SUMMARY | 2024-11-22 15:19 | XMS_ITS | Clinical Summary ---
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 Name Role Phone Unavailable Primary Care Provider Unavailabl e Social History Tobacco Use Types Packs/Day Years Used Date Smoking Tobacco: Never Assessed Comments Unknown Sex and Gender Information Value Date Recorded Sex Assigned at Not on file Legal Sex Female 3:59 AM EST Gender Identity Not on file Sexual Orientation Not on file Plan of Treatment Health Maintenance Due Date Last Done Comments Breast Cancer Screening 1982 DTaP,Tdap,and Td Vaccines (1 - Tdap) 2001 Hepatitis B Vaccines (1 of 3 - 19+ 3-dose series) 2001 Cervical Cancer Screening: P ap Smear 2003 COVID-19 Vaccine (2023-2 5 season) 2024 Influenza Vaccine (#1) 2024 HIB Vaccines Aged Out No longer eligi [...] on patient's age to complete this topic MMR Vaccines Aged Out No longer eligi ble based on patient's age to complete this topic Meningococcal ACWY Vaccine Aged Out N o longer eligible based on patient's age to complete this topic Meningococcal B Vacine Aged Out No lo nger eligible based on patient's age to complete this topic Pneumococcal Vaccine: Pediat rics (0 to 5 Years) and At-Risk Patients (6 to 64 Years) Aged Out No longer eligible b ased on patient's age to complete this topic RSV Immunization Patients Un annabella 20 months Aged Out No longer eligible b ased on patient's age to complete this topic Varicella Vaccines Aged Out No longer eligible based on patient's age to complete this topic
--- OUTSIDE RECORDS SUMMARY | 2024-11-22 15:19 | XMS_ITS | Encounter Summary ---
Author Organization [employer] [facility] Address [address] [place] [address] Care Team Providers Care Wrapper Stitcher Name Role Phone Unavailable Primary Care Provider Unavailabl e Encounter Details Date Type Department Care Team (Latest Contact Info) Description 06/26/2019 Abstract [facility] CONVERSIONS Dental, Provider, DDS Social History Tobacco Use Types Packs/Day Years Used Date Smoking Tobacco: Never Assessed Comments Unknown Sex and Gender Information Value Date Recorded Sex Assigned at Female 07/25/2022 10:36 AM EDT Legal Sex Female 10:36 AM EDT Gender Identity Female 07/25/2022 10:36 AM EDT Sexual Orientation Don't know 07/25/2022 10 :36 AM EDT documented as of this encounter Plan of Treatment Not on file documented as of this encounter Visit Diagnoses Not on filedocumented in this encounter
--- OUTSIDE RECORDS SUMMARY | 2024-11-22 15:19 | XMS_ITS | Encounter Summary ---
Author Organization [employer] [facility] Address [address] [place] [address] Care Team Providers Care Paper Cone Machine Tender Name Role Phone Unavailable Primary Care Provider Unavailabl e Encounter Details Date Type Department Care Team (Latest Contact Info) Description 05/28/2021 Abstract C CONVERSIONS Dental, Provider, DDS Social History Tobacco [...]
== END 2024-11-22 13:53 | disposition home or self-care (01) ==
PROVIDERS: PCP Internal Medicine; Visit Provider Internal Medicine
DX: Z00.00 Encounter for general adult medical examination without abnormal findings (principal); E66.01 Morbid (severe) obesity due to excess calories; Z68.42 Body mass index [BMI] 45.0-49.9, adult; N39.0 Urinary tract infection, site not specified

== ENCOUNTER → 2024-11-22 13:15 | Outpatient (BNVA) | payer BC, SELFPAY | PROVIDERS: PCP Internal Medicine; Visit Provider Internal Medicine | DX: Z00.00 Encounter for general adult medical examination without abnormal findings (principal); E66.01 Morbid (severe) obesity due to excess calories; Z68.42 Body mass index [BMI] 45.0-49.9, adult; N39.0 Urinary tract infection, site not specified | CPT/HCPCS: 81003; 96127 ==

== ENCOUNTER → 2025-02-11 08:41 | Outpatient (RCR) | payer OTHER, SELFPAY ==
--- NOTE | 2021-09-20 17:13 | MHC.PT.EP ---
[facility] [place] Office [place] Office [place] Office [address] Melany Allison [address] [phone] F: [phone] F: [phone] F: [phone] F: [phone] Physical Therapy Plan of Care Date of Evaluation: Date of Surgery: Diagnosis: sciatica L. 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 Pt is deemed an appropriate candidate to receive skilled PT in order to address her physical limitations to improve her functional ability. Frequency and Duration: The patient will be seen 2 x / wk x 5 wks. Short Term Goals: initiate HEP. improve baseline pain to < 3/10; initial 4/10. Fdc Goals: Pt will be able to walk 2 blocks with at most a little bit of difficulty; initial: quite a bit of difficulty. (LEFI) Pt will be able to tolerate standing for 1 hour with managed Sx; initial: quite a bilt of difficulty:(LEFI) I with HEP. LE sciatic Sx abolished. Treatment Plan: Modalities to reduce pain, spasms and effusion. Manual therapy to restore motion and function. Therapeutic exercise to improve strength and flexibility. Neuromuscular re-education for posture and balance. Therapeutic activities to return to functional activities of daily living. Electronically signed by: Shay Cowan PT. Please sign and return to therapist. Thank you for your referral.
--- NOTE | 2022-01-31 11:50 | MHC.PT.DC ---
[facility] [place] Office [place] Office [place] Office [address] Melany Allison [address] [phone] F: [phone] F: [phone] F: [phone] F: [phone] Physical Therapy Discharge Report Diagnosis: sciatica L. Date of Surgery: Date of Evaluation: 09/20/21 Date of Discharge: 09/20/21 Treatments to Date: 1 Cancellations to Date: No Shows to Date: Discharge Status: Patient Elected to Stop Discharge Summary: Electronically signed by: Guille Reyes PT Please sign and return to therapist. Thank you for your referral.
== END | disposition home or self-care (01) ==
LOC: HO.PTCHIC 09-20 12:47
PROVIDERS: PCP Internal Medicine; Visit Provider Internal Medicine
DX: M54.30 Sciatica, unspecified side (principal)
CPT/HCPCS: 97110; 97140; 97161